=== PATIENT | male | born 1995 | race Caucasian/White ===

== ENCOUNTER 2017-03-20 06:41 | Emergency (ER) | payer SELFPAY ==
[2017-03-20 06:49] VITALS: BP 158/86
--- NOTE | 2017-03-20 07:16 | EDM.PDOC ---
ED HPI GENERAL MEDICAL PROBLEM - General Chief Complaint: Chest Pain Stated Complaint: PAIN ON L SIDE/ RACING HEART Time Seen by Provider: 03/20/17 07:03 Source of Information: Reports: Patient, RN Notes Reviewed - History of Present Illness INITIAL COMMENTS - FREE TEXT/NARRATIVE: 21 year old male comes in with L anterior chest discomfort described as a burning type discomfort that started last evening about 14 hrs ago, steady, mild but annoying to the point of not being able to sleep. Also having some intermitant palpitations. He is not short of breath, no nausea, vomiting or diaphoresis. He is not diabetic. he does smoke. No abd pain. Hx of GE reflux but this feels "different". States he is under a lot of stress currently and recently. Left Chest Pain Score (Numeric/FACES): 4 - Related Data Allergies Allergy/AdvReac Type Severity Reaction Status Date / Time codeine Allergy Swelling Verified 07/11/16 20:56 diazepam [From Valium] Allergy Respiratory Verified 07/11/16 20:56 Distress Latex, Natural Rubber Allergy Respiratory Verified 07/11/16 20:56 Distress Penicillins Allergy Respiratory Verified 07/11/16 20:56 Distress bee stings Allergy Severe Hives Uncoded 07/11/16 20:56 Home Meds: Home Meds Albuterol [Proventil HFA] 1 puff INH BID PRN 10/01/14 [History] Budesonide/Formoterol [Symbicort 80-4.5 MCG] 2 puff PO BID 02/21/16 [History] Escitalopram [Lexapro] 10 mg PO DAILY 02/21/16 [History] Past Medical History Respiratory History: Reports: Asthma Gastrointestinal History: Reports: GERD Neurological History: Reports: Migraines Psychiatric History: Reports: Anxiety, Depression Oncologic (Cancer) History: Reports: None - Infectious Disease History Infectious Disease History: Reports: None - Past Surgical History HEENT Surgical History: Reports: Adenoidectomy, Tonsillectomy Other HEENT Surgeries/Procedures: Adnoids Musculoskeletal Surgical History: Reports: Shoulder Surgery Social & Family History - Family History Family Medical History: Noncontributory - Tobacco Use Smoking Status *Q: Current Every Day Smoker Years of Tobacco use: 3 Packs/Tins Daily: 1 - Caffeine Use Caffeine Use: Reports: None - Alcohol Use Days Per Week of Alcohol Use: 0 - Recreational Drug Use Recreational Drug Use: No - Living Situation & Occupation Living situation: Reports: Single Occupation: Employed ED ROS GENERAL - Review of Systems Review Of Systems: See Below Constitutional: Denies: Fever, Chills, Diaphoresis HEENT: Denies: Throat Pain Respiratory: Denies: Shortness of Breath, Pleuritic Chest Pain, Cough Cardiovascular: Reports: Chest Pain, Palpitations. Denies: Lightheadedness, Syncope GI/Abdominal: Denies: Abdominal Pain, Nausea, Vomiting Musculoskeletal: Denies: Neck Pain, Shoulder Pain, Arm Pain Skin: Reports: No Symptoms Neurological: Reports: No Symptoms ED EXAM, GENERAL - Physical Exam Exam: See Below General Appearance: Alert, No Apparent Distress Throat/Mouth: Normal Inspection, Normal Oropharynx Head: Atraumatic. No: Facial Swelling Neck: Supple, Full Range of Motion. No: Lymphadenopathy (L), Lymphadenopathy (R ) Respiratory/Chest: No Respiratory Distress, Lungs Clear, Normal Breath Sounds Cardiovascular: Regular Rate, Rhythm GI/Abdominal: Soft, Non-Tender. No: Guarding Back Exam: Normal Inspection Extremities: Normal Inspection. No: Pedal Edema, Leg Pain Neurological: Alert, Oriented, No Motor/Sensory Deficits Skin Exam: Warm, Dry, Normal Color EKG INTERPRETATION EKG Date: 03/20/17 Rhythm: NSR [place]: Normal P-Wave: Present QRS: Normal ST-T: Depressed Course - Vital Signs Last Recorded V/S: Last Vital Signs Temp 97.7 F 03/20/17 06:47 Pulse 99 03/20/17 06:47 Resp 16 03/20/17 06:47 BP 158/86 H 03/20/17 06:47 Pulse Ox 100 03/20/17 06:47 - Orders/Labs/Meds Orders: Active Orders 24 hr Category Date Time Status EKG Documentation Completion [RC] URGENT Care 03/20/17 07:05 Active Labs: Laboratory Tests 03/20/17 03/20/17 Range/Units 07:25 07:25 WBC 5.92 (4.23-9.07) K/mm3 RBC 4.98 (4.63-6.08) M/mm3 Hgb 16.2 (13.7-17.5) gm/L Hct 46.2 (40.1-51.0) % MCV 92.8 H (79.0-92.2) fl MCH 32.5 H (25.7-32.2) pg MCHC 35.1 (32.2-35.5) g/dl RDW Std Deviation 44.7 H (35.1-43.9) fL Plt Count 199 (163-337) K/mm3 MPV 8.7 L (9.4-12.3) fl Neut % (Auto) 44.8 (34.0-67.9) % Lymph % (Auto) 44.9 (21.8-53.1) % [place] % (Auto) 8.4 (5.3-12.2) % Eos % (Auto) 1.4 (0.8-7.0) Baso % (Auto) 0.3 (0.1-1.2) % Neut # (Auto) 2.65 (1.78-5.38) K/mm3 Lymph # (Auto) 2.66 (1.32-3.57) K/mm3 [place] # (Auto) 0.50 (0.30-0.82) K/mm3 Eos # (Auto) 0.08 (0.04-0.54) K/mm3 Baso # (Auto) 0.02 (0.01-0.08) K/mm3 Sodium 139 (136-145) mEq/L Potassium 3.3 L (3.5-5.1) mEq/L Chloride 102 (98-107) mEq/L Carbon Dioxide 25 (21-32) mEq/L Anion Gap 15.3 H (5-15) BUN 12 (7-18) mg/dL Creatinine 0.9 (0.7-1.3) mg/dL Est Cr Clr Drug Dosing 142.80 mL/min Estimated GFR (MDRD) > 60 (>60) mL/min BUN/Creatinine Ratio 13.3 L (14-18) Glucose 100 (74-106) mg/dL Calcium 9.1 (8.5-10.1) mg/dL Total Bilirubin 0.4 (0.2-1.0) mg/dL AST 18 (15-37) U/L ALT 24 (16-63) U/L Alkaline Phosphatase 69 (46-116) U/L Troponin I < 0.017 (0.00-0.056) ng/mL Total Protein 7.4 (6.4-8.2) g/dl Albumin 4.7 (3.4-5.0) g/dl Globulin 2.7 gm/dL Albumin/Globulin Ratio 1.7 (1-2) Meds: Medications Discontinued Medications Generic Name Dose Route Start Last Admin Trade Name Marisol PRN Reason Stop Dose Admin Potassium Chloride 40 meq 03/20/17 09:10 Klor-Con M20 PO 03/20/17 09:11 ONETIME ONE - Re-Assessments/Exams Free Text/Narrative Re-Assessment/Exam: 03/20/17 09:13 trop came back normal as expected, K mildly low at 3.3 will give 40 meq PO. Departure - Departure Time of Disposition: 09:07 Disposition: Home, Self-Care 01 Condition: Fair Clinical Impression: Atypical chest pain Instructions: Nonspecific Chest Pain Referrals: Janina Griffith MECHANICAL CAR CHECKER [Primary Care Provider] - Forms: ED Department Discharge Additional Instructions: Your heart and heart rythm has checked out well while here at the ED this morning. tylenol up to 3 times daily as needed, pepcid or prilosec, available OTC as needed for any heartburn or reflux type of discomfort, follow up with your regular provider if not much better within 1 to 2 days, return to ED as needed if symptoms worsening in any way. - My Orders Last 24 Hours: My Active Orders 03/20/17 07:05 EKG Documentation Completion [RC] URGENT - Assessment/Plan Last 24 Hours: My Active Orders 03/20/17 07:05 EKG Documentation Completion [RC] URGENT
[2017-03-20] MEDS ORDERED: Potassium Chloride 20 MEQ Tab.ER PO ONE (09:10)
== END 2017-03-20 09:15 | disposition home or self-care (01) ==
LOC: JD.ED 06:41
DX: R07.89 Other chest pain (principal); J45.909 Unspecified asthma, uncomplicated; K21.9 Gastro-esophageal reflux disease without esophagitis; F17.210 Nicotine dependence, cigarettes, uncomplicated; Z88.5 Allergy status to narcotic agent; Z91.040 Latex allergy status; Z88.0 Allergy status to penicillin; Z91.030 Bee allergy status; Z79.899 Other long term (current) drug therapy; Z98.890 Other specified postprocedural states
CPT/HCPCS: 36415; 80053; 84484; 85025; 93005; 99285; A9270; 93010

== ENCOUNTER 2017-07-07 20:05 | Emergency (ER) | payer SELFPAY ==
[2017-07-07 20:49] VITALS: BP 137/77
[2017-07-07] MEDS ORDERED: Ibuprofen 800 MG Tab PO ONE (21:27)
--- NOTE | 2017-07-07 21:31 | EDM.PDOC ---
ED HPI GENERAL MEDICAL PROBLEM - General Chief Complaint: Head Injury Stated Complaint: HIT IN FACE BY A GATE HURT LEFT EYE Time Seen by Provider: 07/07/17 21:13 Source of Information: Reports: Patient History Limitations: Reports: No Limitations - History of Present Illness INITIAL COMMENTS - FREE TEXT/NARRATIVE: Patient presents ED complaining of left sided facial pain with severe headache. 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 States a approximately 850 pound steer ran through a gait and thus the gate hit him in the face. There was no loss of consciousness. This occurred at approximately 1700 hrs. today. He applied ice to the affected area with reduction swelling noted. He has noted mild change to the peripheral vision of the left eye. There is no vision loss. Pain in the face is localized. Headache is described as severe migraine. There is no nausea or vomiting, neck pain, back pain, or any additional complaints. Tetanus status is up-to-date. Face Pain Score (Numeric/FACES): 6 - Related Data Allergies Allergy/AdvReac Type Severity Reaction Status Date / Time codeine Allergy Swelling Verified 07/11/16 20:56 diazepam [From Valium] Allergy Respiratory Verified 07/11/16 20:56 Distress Latex, Natural Rubber Allergy Respiratory Verified 07/11/16 20:56 Distress Penicillins Allergy Respiratory Verified 07/11/16 20:56 Distress bee stings Allergy Severe Hives Uncoded 07/11/16 20:56 Home Meds: Home Meds Albuterol [Proventil HFA] 1 puff INH BID PRN 10/01/14 [History] Budesonide/Formoterol [Symbicort 80-4.5 MCG] 2 puff PO BID 02/21/16 [History] Past Medical History Respiratory History: Reports: Asthma Gastrointestinal History: Reports: GERD Neurological History: Reports: Migraines Psychiatric History: Reports: Anxiety, Depression Oncologic (Cancer) History: Reports: None - Infectious Disease History Infectious Disease History: Reports: None - Past Surgical History HEENT Surgical History: Reports: Adenoidectomy, Tonsillectomy Other HEENT Surgeries/Procedures: Adnoids Musculoskeletal Surgical History: Reports: Shoulder Surgery Social & Family History - Family History Family Medical History: Noncontributory - Tobacco Use Smoking Status *Q: Current Every Day Smoker Years of Tobacco use: 4 Packs/Tins Daily: 0.5 - Caffeine Use Caffeine Use: Reports: Coffee, Energy Drinks, Soda, Tea - Alcohol Use Days Per Week of Alcohol Use: 0 - Recreational Drug Use Recreational Drug Use: No - Living Situation & Occupation Living situation: Reports: Single Occupation: Employed ED ROS GENERAL - Review of Systems Review Of Systems: ROS reveals no pertinent complaints other than HPI. ED EXAM, HEAD INJURY - Physical Exam Exam: See Below Exam Limited By: No Limitations General Appearance: Alert, WD/WN, No Apparent Distress Head: Facial Swelling, Facial Tenderness, Other (Swelling noted to the left orbit with no pain on palpation. No bony abdomen abnormalities noted. No wounds present.). No: Scalp Lacerations, Scalp Swelling, Scalp Abrasions, Scalp Hematoma Nexus Criteria: No: Posterior, Midline Cervical Tenderness, Evidence of Intoxication, Altered Level of Consciousness, Focal Neurological Deficit, Painful Distraction Injuries Eyes: Bilateral Eye: Normal Inspection, PERRL, Other (Visual acuity R 20/25 L20/ 30. ) Ears: Hearing Grossly Normal Nose: Normal Inspection Throat/Mouth: Normal Voice, No Airway Compromise Neck: Non-Tender, Full Range of Motion, Normal Alignment, Normal Inspection Respiratory: No Respiratory Distress, Lungs Clear, Normal Breath Sounds, No Accessory Muscle Use, Chest Non-Tender Cardiovascular: Normal Peripheral Pulses, Regular Rate, Rhythm Extremities: Normal Inspection Neurologic: concrete panel installer II-XII nml As Tested, No Motor/Sensory Deficits, Alert, Normal Mood/Affect, Oriented x 3 Skin: Normal Color, Warm/Dry Course - Vital Signs Last Recorded V/S: Last Vital Signs Temp 97.4 F 07/07/17 20:45 Pulse 110 H 07/07/17 20:45 Resp 18 07/07/17 20:45 BP 137/77 07/07/17 20:45 Pulse Ox 98 07/07/17 20:45 - Orders/Labs/Meds Orders: Active Orders 24 hr Category Date Time Status Head wo Cont [CT] Stat Exams 07/07/17 21:26 Taken Maxillofacial w/o CM [Max Facial Sinus wo Cont] [CT] Exams 07/07/17 21:26 Taken Stat Meds: Medications Discontinued Medications Generic Name Dose Route Start Last Admin Trade Name Freq PRN Reason Stop Dose Admin Ibuprofen 800 mg 07/07/17 21:27 07/07/17 22:19 Motrin PO 07/07/17 21:28 800 mg ONETIME ONE Administration - Re-Assessments/Exams Free Text/Narrative Re-Assessment/Exam: Ordered CT of the head without contrast and maxillary facial bones without. Also ordered ibuprofen 800 mg by mouth. 07/07/17 22:48 [address] maxillofacial bones and CT of the head did not reveal any acute abnormalities. No maxillofacial fracture. No intracranial hemorrhage injury or skull fracture. Discuss results of CT studies. Headache has minimally changed with the ibuprofen. Offered additional medications to which the patient refused. Will discharge patient home with instructions as documented. Departure - Departure Time of Disposition: 23:09 Disposition: Home, Self-Care 01 Condition: Good Clinical Impression: Contusion of face Qualifiers: Encounter type: initial encounter Qualified Code(s): S00.83XA - Contusion of other part of head, initial encounter Headache Qualifiers: Headache type: tension-type Headache chronicity pattern: acute headache Intractability: not intractable Qualified Code(s): G44.209 - Tension-type headache, unspecified, not intractable - Discharge Information Instructions: Facial or Scalp Contusion, [id number] Referrals: Janina Griffith, ORE MIXER [Primary Care Provider] - Forms: ED Department Discharge, ED Return to Work/School Form Additional Instructions: Apply ice to the affected area 4 times a day, 30 minutes in duration, do not place ice directly on the skin. Take Tylenol and ibuprofen in alternating fashion for pain. Follow-up with PCP as needed for reevaluation. Return to the ED if you develop any new or worsening symptoms. - My Orders Last 24 Hours: My Active Orders 07/07/17 21:26 Head wo Cont [CT] Stat Maxillofacial w/o CM [Max Facial Sinus wo Cont] [CT] Stat - Assessment/Plan Last 24 Hours: My Active Orders 07/07/17 21:26 Head wo Cont [CT] Stat Maxillofacial w/o CM [Max Facial Sinus wo Cont] [CT] Stat
--- NOTE | 2017-07-08 10:56 | CT ---
CT facial bones Technique: Multiple axial sections through the facial bones were obtained. Reconstructed coronal and sagittal images were reviewed. Findings: Paranasal sinuses are clear. No air-fluid levels are seen within the sinuses. Right and left globes are symmetric. No facial bone fracture is identified. No opaque foreign object is seen. Impression: 1. Nothing acute is seen on CT study of the facial bones. Diagnostic code #1 I agree with preliminary report issued by [facility] ([facility] report finalized on 07/07/17, 11:44 PM Central Time)
--- NOTE | 2017-07-08 10:57 | CT ---
Head CT Technique: Multiple axial sections through the brain were obtained. Intravenous contrast was not utilized. Comparison: No prior head CT exam, previous MRI brain dated 01/19/14. Findings: Ventricles along with basal cisterns and sulci over the convexities are within normal limits. No abnormal parenchymal densities are seen. No evidence of intracranial hemorrhage. No midline shift or mass effect is seen. Bone window settings were reviewed which show the visualized sinuses to appear clear. No acute calvarial abnormality is identified. Impression: 1. No acute intracranial abnormality is identified. Diagnostic code #1 I agree with preliminary report issued by [facility] ([facility] report finalized on 07/07/17, 11:45 PM Central Time)
== END 2017-07-07 23:30 | disposition home or self-care (01) ==
LOC: JD.ED 20:05
DX: S00.83XA Contusion of other part of head, initial encounter (principal); G44.209 Tension-type headache, unspecified, not intractable; J45.909 Unspecified asthma, uncomplicated; F17.210 Nicotine dependence, cigarettes, uncomplicated; Z79.899 Other long term (current) drug therapy; Z88.5 Allergy status to narcotic agent; Z88.0 Allergy status to penicillin; Z88.8 Allergy status to other drugs, medicaments and biological substances; Z91.030 Bee allergy status; W22.8XXA Striking against or struck by other objects, initial encounter
CPT/HCPCS: 70450; 70486; 99284; A9270; 99283

== ENCOUNTER 2017-10-11 12:53 | Emergency (ER) | payer SELFPAY ==
[2017-10-11] MEDS ORDERED: Alum Hydrox/Mag Hydrox/Simeth 30 ML, Lidocaine 2% 15 ML PO ONE ×2 (13:24)
[2017-10-11] MEDS ORDERED: Pantoprazole 40 MG Tab.CR PO ONE (13:25)
--- NOTE | 2017-10-11 13:28 | EDM.PDOC ---
ED HPI GENERAL MEDICAL PROBLEM - General Chief Complaint: Abdominal Pain Stated Complaint: ABDOMINAL PAINS POSSIBLE GAL BLADDER ISSUES Time Seen by Provider: 10/11/17 13:06 Source of Information: Reports: Patient History Limitations: Reports: No Limitations - History of Present Illness INITIAL COMMENTS - FREE TEXT/NARRATIVE: Patient is a 22-year-old male who presents to the ED complaining of epigastric and left upper quadrant abdominal pain. He states this started approximately 1.5 weeks ago. He was initially evaluated at [facility] this past and Wednesday for similar symptoms. Patient had blood work and ultrasound performed. Ultrasound did not reveal any blockage but the study was in adequate since the gallbladder was contracted secondary to eating 2.5 hours prior. He was started on Zantac and also Carafate to which he's been taking religiously. Pain is worsened with eating and also sitting up. Pain is constant with waxing and waning in intensity. States he has had a few episodes of emesis described as yellow clear fluid. No blood present. He presents to the E.D. today due to persistent pain. Patient has been under a lot more stress as of lately. Drinks multiple cups of coffee daily. Prior to onset of epigastric pain patient admits to taking ibuprofen like tic tac's for his migraine headaches. Smokes 1 ppd. Has in the past utilized chewing tobacco but quit due to stomach irritation. Hes had no diarrhea or blood within his stool. He has no history of GI bleeds and or gastric ulcers. PMH: asthma Medications: Symbicort SH: non contributory. Left Upper Abdomen Pain Score (Numeric/FACES): 4 - Related Data Allergies Allergy/AdvReac Type Severity Reaction Status Date / Time codeine Allergy Swelling Verified 10/11/17 13:02 diazepam [From Valium] Allergy Respiratory Verified 10/11/17 13:02 Distress Latex, Natural Rubber Allergy Respiratory Verified 10/11/17 13:02 Distress Penicillins Allergy Respiratory Verified 10/11/17 13:02 Distress bee stings Allergy Severe Hives Uncoded 07/11/16 20:56 Home Meds: Home Meds Albuterol [Proventil HFA] 1 puff INH BID PRN 10/01/14 [History] Budesonide/Formoterol [Symbicort 80-4.5 MCG] 2 puff PO BID 02/21/16 [History] Past Medical History Respiratory History: Reports: Asthma Gastrointestinal History: Reports: GERD Neurological History: Reports: Migraines Psychiatric History: Reports: Anxiety, Depression Oncologic (Cancer) History: Reports: None - Infectious Disease History Infectious Disease History: Reports: None - Past Surgical History HEENT Surgical History: Reports: Adenoidectomy, Tonsillectomy Other HEENT Surgeries/Procedures: Adnoids Musculoskeletal Surgical History: Reports: Shoulder Surgery Social & Family History - Family History Family Medical History: Noncontributory - Tobacco Use Smoking Status *Q: Current Every Day Smoker Years of Tobacco use: 3 Packs/Tins Daily: 1 Used Tobacco, but Quit: No - Caffeine Use Caffeine Use: Reports: Soda - Alcohol Use Days Per Week of Alcohol Use: 0 - Recreational Drug Use Recreational Drug Use: No - Living Situation & Occupation Living situation: Reports: Single Occupation: Employed ED ROS GENERAL - Review of Systems Review Of Systems: See Below Constitutional: Reports: Decreased Appetite. Denies: Fever, Chills HEENT: Reports: No Symptoms Respiratory: Reports: No Symptoms Cardiovascular: Reports: No Symptoms GI/Abdominal: Reports: Abdominal Pain, Nausea, Vomiting. Denies: Black Stool, Bloody Stool, Constipation, Diarrhea, Decreased Appetite, Hematemesis, Melena : Reports: No Symptoms Musculoskeletal: Reports: No Symptoms Neurological: Reports: No Symptoms ED EXAM, GI/ABD - Physical Exam Exam: See Below Exam Limited By: No Limitations General Appearance: Alert, WD/WN, No Apparent Distress Ears: Hearing Grossly Normal Nose: Normal Inspection Throat/Mouth: Normal Inspection, Normal Oropharynx, Normal Voice, No Airway Compromise Head: Atraumatic, Normocephalic Neck: Normal Inspection, Supple Respiratory/Chest: No Respiratory Distress, Lungs Clear, Normal Breath Sounds, No Accessory Muscle Use, Chest Non-Tender Cardiovascular: Normal Peripheral Pulses, Regular Rate, Rhythm, No Murmur GI/Abdominal Exam: Normal Bowel Sounds, Soft, No Organomegaly, No Distention, No Mass, Tender (Epigastric region) (Male) Exam: Deferred Rectal (Males) Exam: Deferred (No complaints per Patient) Neurological: Alert, Oriented, CN II-XII Intact, Normal Cognition, No Motor/ Sensory Deficits Psychiatric: Normal Affect, Normal Mood Skin Exam: Warm, Dry, Intact, Normal Color Course - Vital Signs Last Recorded V/S: Last Vital Signs Temp 97.8 F 10/11/17 12:59 Pulse 78 10/11/17 12:59 Resp 18 10/11/17 12:59 BP 146/82 H 10/11/17 12:59 Pulse Ox 100 10/11/17 12:59 - Orders/Labs/Meds Labs: Laboratory Tests 10/11/17 10/11/17 10/11/17 Range/Units 13:35 13:35 13:35 WBC 6.67 (4.23-9.07) K/mm3 RBC 5.13 (4.63-6.08) M/mm3 Hgb 16.6 (13.7-17.5) gm/L Hct 48.6 (40.1-51.0) % MCV 94.7 H (79.0-92.2) fl MCH 32.4 H (25.7-32.2) pg MCHC 34.2 (32.2-35.5) g/dl RDW Std Deviation 44.4 H (35.1-43.9) fL Plt Count 216 (163-337) K/mm3 MPV 9.4 (9.4-12.3) fl Sodium 142 (136-145) mEq/L Potassium 4.0 (3.5-5.1) mEq/L Chloride 105 (98-107) mEq/L Carbon Dioxide 25 (21-32) mEq/L Anion Gap 16.0 H (5-15) BUN 14 (7-18) mg/dL Creatinine 0.9 (0.7-1.3) mg/dL Est Cr Clr Drug Dosing 146.73 mL/min Estimated GFR (MDRD) > 60 (>60) mL/min BUN/Creatinine Ratio 15.6 (14-18) Glucose 96 (74-106) mg/dL Calcium 9.2 (8.5-10.1) mg/dL Total Bilirubin 0.2 (0.2-1.0) mg/dL AST 26 (15-37) U/L ALT 40 (16-63) U/L Alkaline Phosphatase 81 (46-116) U/L C-Reactive Protein < 0.2 (<1.0) mg/dL Total Protein 7.4 (6.4-8.2) g/dl Albumin 4.8 (3.4-5.0) g/dl Globulin 2.6 gm/dL Albumin/Globulin Ratio 1.9 (1-2) Lipase 144 (73-393) U/L Meds: Medications Discontinued Medications Generic Name Dose Route Start Last Admin Trade Name Marisol PRN Reason Stop Dose Admin Al Hydroxide/Mg Hydroxide 30 0 ml 10/11/17 13:24 10/11/17 13:30 ml/ Lidocaine HCl 15 ml PO 10/11/17 13:25 45 ml ONETIME ONE Administration Pantoprazole Sodium 40 mg 10/11/17 13:25 10/11/17 13:30 Protonix PO 10/11/17 13:26 40 mg DAILY ONE Administration - Re-Assessments/Exams Free Text/Narrative Re-Assessment/Exam: Patient refuses IV to be started. Will obtain basic labs CBC, chem 14, and CRP. Ultrasound abdomen limited will be ordered. Attempting to get medical records from ED visit this past /Wednesday at [facility]. Labs reviewed: CBC and chemistry panel were essentially normal. CRP within normal limits. LIPASE 144. 1434 Ultrasound abdomen limited: No abnormality is identified on limited right upper quadrant abdominal ultrasound. 10/11/17 1445 Reassessment, patient has no complaints at this time. Symptoms resolved with the above therapies. Discussed labs and ultrasound report with the patient. Suspect patient has NSAID-induced gastritis. He was instructed to refrain from taking any nsaids. Treatment will consist of omeprazole 40 mg in the a.m. every day for the next 14 days. Zantac 150 evening prior to bed. Maalox intermittently throughout the course the day for any flareups. Carafate 4 times a day as prescribed. No eating or drinking within 4 hours of going to bed. Follow-up with PCP in the 2 weeks for reevaluation and schedule possible EGD. Will discharge patient home with instructions as documented. Reviewed faxed E.D. visit post discharge. Patient was placed on nexium. Will advise patient to not take omeprazole and increase nexium dose to 40mg every am. 1125 10/12/17 I did call the patient this morning and notified of the changes to medication regimen after review of discharge med plan from [facility].Patient voiced understanding. Will continue on nexium, carafate, and zantac. Departure - Departure Time of Disposition: 15:01 Disposition: Home, Self-Care 01 Condition: Good Clinical Impression: Gastritis Qualifiers: Gastritis type: unspecified gastritis Chronicity: acute Gastritis bleeding: without bleeding Qualified Code(s): K29.00 - Acute gastritis without bleeding - Discharge Information Instructions: Gastritis, Adult, [id number] Referrals: Janina Griffith CRUISE COORDINATOR [Primary Care Provider] - Forms: ED Department Discharge Additional Instructions: Suspect you have NSAID-induced gastritis. Refrain from taking any nsaids. Treatment will consist of omeprazole 40 mg in the a.m. every day for the next 14 days. Zantac 150 evening prior to bed. Maalox intermittently throughout the course the day for any flareups. Carafate 4 times a day as prescribed. No eating or drinking within 4 hours of going to bed. Follow-up with PCP in 2 weeks for reevaluation and schedule possible EGD. Return to ED if you develop any new or worsening symptoms.
[2017-10-11 13:45] VITALS: BP 146/82
--- NOTE | 2017-10-11 14:25 | US ---
Limited obstetrical ultrasound: Multiple real-time images of the upper right abdomen were obtained. Comparison: No prior abdominal imaging. Findings: Liver shows no focal parenchymal abnormality. Gallbladder contains no shadowing gallstones. No gallbladder wall thickening or biliary duct dilatation is seen. Right kidney shows no hydronephrosis or mass and has a length of 11.4 cm. Visualized portions of the pancreas are unremarkable. Portal vein shows normal hepatopedal flow. Impression: 1. No abnormality is identified on right upper quadrant abdominal ultrasound. Diagnostic code #1
== END 2017-10-11 15:16 | disposition home or self-care (01) ==
LOC: JD.ED 12:53
DX: K29.00 Acute gastritis without bleeding (principal); J45.909 Unspecified asthma, uncomplicated; F17.210 Nicotine dependence, cigarettes, uncomplicated; Z88.5 Allergy status to narcotic agent; Z88.0 Allergy status to penicillin; Z91.040 Latex allergy status; Z91.030 Bee allergy status; Z79.899 Other long term (current) drug therapy
CPT/HCPCS: 36415; 76705; 80053; 83690; 85027; 86140; 99284; A9270; 99283

== ENCOUNTER 2017-11-10 07:07 | Day surgery (SDC) | payer MEDICAID, OTHER ==
[~2017-11-10 07:07] MED LIST: Lactated Ringers 1,000 ML IV SCH; Lidocaine 1%/Sod Bicarbonate in NS 8.4% 1 ML Syringe IDERM PRN; Sodium Chloride 0.9% 10 ML Syringe FLUSH PRN
--- NOTE | 2017-11-10 08:03 | PCM.PREANE ---
Preanesthetic Assessment - Procedure Proposed Procedure: Diagnostic Colonoscopy - Anesthesia/Transfusion/Family Hx Anesthesia History: Prior Anesthesia Without Reaction Family History of Anesthesia Reaction: No Transfusion History: No Prior Transfusion(s) - Review of Systems General: No Symptoms Pulmonary: Other (asthma- uses daily inhaler ) Cardiovascular: No Symptoms Gastrointestinal: No Symptoms Neurological: No Symptoms Other: Reports: None - Physical Assessment NPO Status Date: 11/09/17 NPO Status Time: 23:59 O2 Sat by Pulse Oximetry: 96 Respiratory Rate: 20 Vital Signs: Last Vital Signs Temp 37.0 C 11/10/17 07:20 Pulse 77 11/10/17 07:20 Resp 20 11/10/17 07:20 BP 143/82 H 11/10/17 07:20 Pulse Ox 96 11/10/17 07:20 Height: 1.85 m Weight: 87.997 kg ASA Class: 2 Mental Status: Alert & Oriented x3 Airway Class: Mallampati = 2 Dentition: Reports: Normal Dentition Thyro-Mental Finger Breadths: 3 Mouth Opening Finger Breadths: 3 ROM/Head Extension: Full Lungs: Clear to Auscultation, Normal Respiratory Effort Cardiovascular: Regular Rate, Regular Rhythm - Allergies Allergies/Adverse Reactions: Allergies Allergy/AdvReac Type Severity Reaction Status Date / Time codeine Allergy Swelling Verified 11/09/17 16:34 diazepam [From Valium] Allergy Respiratory Verified 11/09/17 16:34 Distress Latex, Natural Rubber Allergy Respiratory Verified 11/09/17 16:34 Distress Penicillins Allergy Respiratory Verified 11/09/17 16:34 Distress bee stings Allergy Severe Hives Uncoded 11/09/17 16:34 - Blood Blood Available: No Product(s) Available: None - Anesthesia Plan Pre-Op Medication Ordered: None - Acknowledgements Anesthesia Type Planned: MAC Pt an Appropriate Candidate for the Planned Anesthesia: Yes Alternatives and Risks of Anesthesia Discussed w Pt/Guardian: Yes Pt/Guardian Understands and Agrees with Anesthesia Plan: Yes PreAnesthesia Questionnaire HEENT History: Reports: Allergic Rhinitis Cardiovascular History: Reports: None Respiratory History: Reports: Asthma Gastrointestinal History: Reports: GERD Genitourinary History: Reports: None [employer]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 Musculoskeletal History: Reports: Other (See Below) Other Musculoskeletal History: shoulder crush injury, right shoulder strain, pain, and rotator cuff tear Neurological History: Reports: None, Migraines Psychiatric History: Reports: Anxiety, Depression Endocrine/Metabolic History: Reports: None Hematologic History: Reports: None Immunologic History: Reports: None Oncologic (Cancer) History: Reports: None Dermatologic History: Reports: None - Infectious Disease History Infectious Disease History: Reports: None - Past Surgical History Head Surgeries/Procedures: Reports: None HEENT Surgical History: Reports: Adenoidectomy, Tonsillectomy Other HEENT Surgeries/Procedures: Adnoids Cardiovascular Surgical History: Reports: None Respiratory Surgical History: Reports: None GI Surgical History: Reports: None Female Surgical History: Reports: None Male Surgical History: Reports: None Endocrine Surgical History: Reports: None Neurological Surgical History: Reports: None Musculoskeletal Surgical History: Reports: Shoulder Surgery Other Musculoskeletal Surgeries/Procedures:: 2 years ago Oncologic Surgical History: Reports: None - SUBSTANCE USE Smoking Status *Q: Current Every Day Smoker Tobacco Use Within Last Twelve Months: Cigarettes Days Per Week of Alcohol Use: 0 Recreational Drug Use History: No - HOME MEDS Home Medications: Home Meds Budesonide/Formoterol [Symbicort 80-4.5 MCG] 2 puff PO BID 02/21/16 [History] Acetaminophen [Tylenol] 650 mg PO QID PRN 11/09/17 [History] Ibuprofen 800 mg PO QID PRN 11/09/17 [History] - CURRENT (IN HOUSE) MEDS Current Meds: Current Medications Lactated Ringer's (Ringers, Lactated) 1,000 mls @ 125 mls/hr IV ASDIRECTED BRENDA Stop: 11/10/17 23:00 Last Admin: 11/10/17 07:30 Dose: 125 mls/hr Lidocaine/Sodium Bicarbonate (Buffered Lidocaine 1% In Ns 8.4%) 0.25 ml IDERM ONETIME PRN PRN Reason: Prior to IV Start Stop: 11/10/17 18:00 Last Admin: 11/10/17 07:29 Dose: 0.25 ml Sodium Chloride (Saline Flush) 10 ml FLUSH ASDIRECTED PRN PRN Reason: Keep Vein Open Stop: 11/10/17 18:00
[2017-11-10] MEDS ORDERED: Propofol 200 MG/20 ML SDV ONE ×3 (08:06→08:36)
[2017-11-10] MEDS ORDERED: fentaNYL 100 MCG/2 ML SDV ONE (08:06)
--- NOTE | 2017-11-10 08:55 | PCM48HPAN ---
Post Anesthesia Note - EVALUATION WITHIN 48HRS OF ANESTHETIC Vital Signs in Normal Range: Yes Patient Participated in Evaluation: Yes Respiratory Function Stable: Yes Airway Patent: Yes Cardiovascular Function Stable: Yes Hydration Status Stable: Yes Pain Control Satisfactory: Yes Nausea and Vomiting Control Satisfactory: Yes Mental Status Recovered: Yes Pulse Rate: 81 SaO2: 92 Resp Rate: 24 Temperature: 36.1 C Blood Pressure: 126/65
--- NOTE | 2017-11-10 08:56 | PCM.OPNOTE ---
- General Post-Op/Procedure Note Date of Surgery/Procedure: 11/10/17 Operative Procedure(s): 1. Esophagogastroduodenoscopy with antral and gastric biopsies along with GE junction biopsies. 2. Colonoscopy with ileal and rectal biopsies Findings: Diffuse antritis and gastritis Endoscopic mild proctitis Normal-appearing terminal ileum Pre Op Diagnosis: Weight loss with upper abdominal pain and chronic diarrhea Post-Op Diagnosis: 1. Diffuse antritis and gastritis. 2. Mild proctitis Anesthesia Technique: MAC, Moderate Sedation Primary Surgeon: Joseluis Mayers Pathology: Gastric body and antral biopsies along with GE junction biopsies Ileal and rectal biopsies EBL in mLs: 0 Complications: None Condition: Good Free Text/Narrative:: After adequate IV sedation and analgesia was obtained with monitoring the patient was placed on his left side. Through a bite-block lubricated upper endoscope was inserted into the esophagus and advanced under direct vision to the stomach. Additional air was given here. There was obvious erythematous changes that were patchy within the gastric body and circumferentially within the antral area. There were no erosions or ulcerations in either of these 2 areas. I then introduced the scope through the pylorus up to the second part of the duodenum. The second first ports were endoscopically normal with no inflammatory changes or mass lesions. The scope was then withdrawn to the incisure where it was retroflexed and there was no hiatal hernia. The gastric fundus and cardiac regions were normal. Biopsies were taken of the antrum and the body of the stomach for histologic evaluation. The scope was then withdrawn to the GE junction which was unremarkable. Random biopsy was taken given his history. The body of the esophagus was grossly normal as well as the vocal cords. Perianal inspection revealed mild external hemorrhoids. Digital rectal examination was otherwise unremarkable. A lubricated colonoscope was inserted into the rectum and advanced to the cecum without difficulty. The bowel preparation was excellent. I then introduced the colonoscope into the terminal ileum which was grossly normal however the Peyer's patches were slightly prominent. 2 biopsies were taken from this area given his history of diarrhea. The scope was then withdrawn through the right colon which was endoscopically normal. The transverse descending and sigmoid colons were also endoscopically normal with no inflammatory changes mass lesions or infectious changes seen. The rectum had slight loss of mucosal vascularity in its distal third. The mucosa was not friable. There were a few specks of fibrinous erythematous material in the area with no jojo blood. I took rectal biopsies given his history for review. [employer] photographs were taken for the patient for the medical record. Air was removed as I finished both procedures which he tolerated well.
[2017-11-10 11:16] VITALS: BP 123/70
== END 2017-11-10 10:05 | disposition home or self-care (01) ==
LOC: JD.SDS 07:07
PROVIDERS: ATTEND Surgery
DX: K29.60 Other gastritis without bleeding (principal); K62.89 Other specified diseases of anus and rectum; K31.819 Angiodysplasia of stomach and duodenum without bleeding; K52.9 Noninfective gastroenteritis and colitis, unspecified; R19.4 Change in bowel habit; J45.909 Unspecified asthma, uncomplicated; F17.210 Nicotine dependence, cigarettes, uncomplicated; Z88.5 Allergy status to narcotic agent; Z88.0 Allergy status to penicillin; Z91.030 Bee allergy status; Z91.040 Latex allergy status; Z88.8 Allergy status to other drugs, medicaments and biological substances; Z79.51 Long term (current) use of inhaled steroids; Z79.899 Other long term (current) drug therapy
CPT/HCPCS: 43239; 45380; J3010; J7120; 00813; 88305; J2704

== ENCOUNTER 2017-11-12 14:49 | Emergency (ER) | payer MEDICAID ==
[2017-11-12 15:18] VITALS: BP 151/93
[2017-11-12] MEDS ORDERED: Clindamycin HCl 150 MG Cap PO ONE (15:50)
[2017-11-12] MEDS ORDERED: oxyCODONE 5 MG Tab PO ONE (15:50)
--- NOTE | 2017-11-12 15:53 | EDM.PDOC ---
ED HPI GENERAL MEDICAL PROBLEM - General Chief Complaint: ENT Problem Stated Complaint: UPPER JAW PAIN Time Seen by Provider: 11/12/17 15:28 Source of Information: Reports: Patient History Limitations: Reports: No Limitations - History of Present Illness INITIAL COMMENTS - FREE TEXT/NARRATIVE: 22 y/o M presents with dental pain. Has known problems, is awaiting resinstitution of his dental insurance in approximately 10 days to get dental work done. Has pain in R lower teeth, poorly localized, severe, worse with eating, no relieving factors. Prevented sleep last night. Is starting to get some gum line swelling on the R lower area as well. No fever. No facial swelling. No difficulty speaking or swallowing. No neck pain or stiffness. Taking NSAIDs for pain with no relief. Left Upper Tooth/Teeth Pain Score (Numeric/FACES): 6 - Related Data Allergies Allergy/AdvReac Type Severity Reaction Status Date / Time codeine Allergy Swelling Verified 11/09/17 16:34 diazepam [From Valium] Allergy Respiratory Verified 11/09/17 16:34 Distress Latex, Natural Rubber Allergy Respiratory Verified 11/09/17 16:34 Distress Penicillins Allergy Respiratory Verified 11/09/17 16:34 Distress bee stings Allergy Severe Hives Uncoded 11/09/17 16:34 Home Meds: Home Meds Budesonide/Formoterol [Symbicort 80-4.5 MCG] 2 puff PO BID 02/21/16 [History] Clindamycin HCl 300 mg PO QID #28 capsule 11/12/17 [Rx] Naproxen 440 mg PO ASDIRECTED PRN 11/12/17 [History] oxyCODONE 5 mg PO QID PRN #12 tab 11/12/17 [Rx] Past Medical History HEENT History: Reports: Allergic Rhinitis, Other (See Below) Other HEENT History: dental issues Cardiovascular History: Reports: None Respiratory History: Reports: Asthma Gastrointestinal History: Reports: GERD Genitourinary History: Reports: None 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 Musculoskeletal History: Reports: Other (See Below) Other Musculoskeletal History: shoulder crush injury, right shoulder strain, pain, and rotator cuff tear Neurological History: Reports: None, Migraines Psychiatric History: Reports: Anxiety, Depression Endocrine/Metabolic History: Reports: None Hematologic History: Reports: None Immunologic History: Reports: None Oncologic (Cancer) History: Reports: None Dermatologic History: Reports: None - Infectious Disease History Infectious Disease History: Reports: None - Past Surgical History Head Surgeries/Procedures: Reports: None HEENT Surgical History: Reports: Adenoidectomy, Tonsillectomy Other HEENT Surgeries/Procedures: Adnoids Cardiovascular Surgical History: Reports: None Respiratory Surgical History: Reports: None GI Surgical History: Reports: None Male Surgical History: Reports: None Endocrine Surgical History: Reports: None Neurological Surgical History: Reports: None Musculoskeletal Surgical History: Reports: Shoulder Surgery Other Musculoskeletal Surgeries/Procedures:: 2 years ago Oncologic Surgical History: Reports: None Social & Family History - Family History Family Medical History: Noncontributory - Tobacco Use Smoking Status *Q: Current Every Day Smoker Years of Tobacco use: 2 Packs/Tins Daily: 0.4 - Caffeine Use Caffeine Use: Reports: Coffee, Soda - Recreational Drug Use Recreational Drug Use: No - Living Situation & Occupation Living situation: Reports: Single Occupation: Employed ED ROS ENT - Review of Systems Review Of Systems: See Below Constitutional: Denies: Fever HEENT: Reports: Dental Pain Respiratory: Denies: Shortness of Breath Cardiovascular: Reports: No Symptoms Musculoskeletal: Denies: Neck Pain Neurological: Reports: No Symptoms ED EXAM, ENT - Physical Exam Exam: See Below Exam Limited By: No Limitations General Appearance: Alert, WD/WN, No Apparent Distress Eye Exam: Bilateral Eye: Normal Inspection Ears: Normal External Exam Nose: Normal Inspection Mouth/Throat: Dental Pain (R lower teeth 26-30. Mild gum line TTP and swelling throughout. No focal abscess at this time. Poor dentition. No pharyngeal swelling or other abnormality. Normal voice. ). No: Dental Abcess, Trismus Head: Atraumatic, Normocephalic Neck: Normal Inspection, Supple, Non-Tender, Full Range of Motion Respiratory/Chest: No Respiratory Distress Neurological: Alert, Oriented, Normal Cognition Psychiatric: Normal Affect, Normal Mood Skin: Warm, Dry, Intact, Normal Color, No Rash Course - Vital Signs Last Recorded V/S: Last Vital Signs Temp 36.9 C 11/12/17 15:15 Pulse 87 11/12/17 15:15 Resp 20 11/12/17 15:15 BP 151/93 H 11/12/17 15:15 Pulse Ox 97 11/12/17 15:15 - Orders/Labs/Meds Meds: Medications Discontinued Medications Generic Name Dose Route Start Last Admin Trade Name Freq PRN Reason Stop Dose Admin Clindamycin HCl 300 mg 11/12/17 15:50 11/12/17 16:05 Cleocin PO 11/12/17 15:51 300 mg ONETIME ONE Administration Oxycodone HCl 5 mg 11/12/17 15:50 11/12/17 16:06 Oxycodone PO 11/12/17 15:51 5 mg ONETIME ONE Administration Departure - Departure Time of Disposition: 15:51 Disposition: Home, Self-Care 01 Clinical Impression: Pain, dental - Discharge Information Prescriptions: Clindamycin HCl 300 mg PO QID #28 capsule oxyCODONE 5 mg PO QID PRN #12 tab PRN Reason: Pain Instructions: Preventive Dental Care, Adult Referrals: Janina Griffith NP [Primary Care Provider] - Forms: ED Department Discharge Additional Instructions: 1. Take naproxen as needed for pain. Take acetaminophen (Tylenol) in addition as needed. 2. Take oxycodone as needed for severe pain. No driving or working while taking this med as it may make you sleepy or confused. 3. Take clindamycin as prescribed 4. Follow up with dental as soon as possible 5. Return to the ED if you have concerning symptoms such as fever (temp 101 or higher), severe facial swelling, or other concerns
== END 2017-11-12 16:12 | disposition home or self-care (01) ==
LOC: JD.ED 14:49
DX: K08.89 Other specified disorders of teeth and supporting structures (principal); F17.210 Nicotine dependence, cigarettes, uncomplicated; Z88.5 Allergy status to narcotic agent; Z91.040 Latex allergy status; Z88.0 Allergy status to penicillin; Z91.030 Bee allergy status
CPT/HCPCS: 99283; A9270

== ENCOUNTER 2017-12-05 20:27 | Emergency (ER) | payer SELFPAY ==
[2017-12-05] MEDS ORDERED: Albuterol 0.083% 2.5 MG/3 ML Neb Soln NEB ONE (20:37)
[2017-12-05] MEDS ORDERED: Sodium Chloride 0.9% 1,000 ML IV SCH ×2 (20:45→21:45)
[2017-12-05] MEDS ORDERED: Potassium Chloride 10 MEQ in Premix Bag 1 BAG IV ONE (22:07)
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
[2017-12-05 23:47] VITALS: BP 136/85
--- NOTE | 2017-12-06 08:23 | CR ---
Chest: Portable view of the chest was obtained. Comparison: No prior chest x-ray. Heart size and mediastinum are normal. Lungs are clear. Previous resection of the distal right clavicle is noted. Impression: 1. Prior right distal clavicle surgery. 2. Nothing acute is appreciated on portable chest x-ray. Diagnostic code #2
== END 2017-12-06 00:35 | disposition home or self-care (01) ==
LOC: MERGE 20:27 → JD.ED 20:27
DX: T75.1XXA Unspecified effects of drowning and nonfatal submersion, initial encounter (principal); F10.129 Alcohol abuse with intoxication, unspecified; E87.6 Hypokalemia; Z88.5 Allergy status to narcotic agent; Z88.0 Allergy status to penicillin; Z91.040 Latex allergy status
CPT/HCPCS: 36415; 71045; 80053; 80306; 81003; 82962; 83605; 85025; 94640; 96361; 96365; 96366; 99285; G0480; J3480; J7040; 99284